=== PATIENT | female | born 1980 | race American Indian/Alaskan Native ===

== ENCOUNTER 2017-09-02 13:16 | Emergency (ER) | payer BC ==
[2017-09-02] MEDS ORDERED: REGLAN IV ONE (14:29)
[2017-09-02] MEDS ORDERED: BENADRYL IV ONE (14:29)
[2017-09-02] MEDS ORDERED: NACL 0.9% 1000 ML 1,000 ML IV ONE (14:29)
[2017-09-02] MEDS ORDERED: TORADOL IV ONE (14:29)
[2017-09-02 14:32] LABS: Basophils % (Auto) 0.7 % (0.0-1.8); Eosinophils % (Auto) 0.4 % (0.0-4.3); Hematocrit 41.9 % (30.3-42.9); Lymphocytes # (Auto) 2.1 K/mm3 (1.2-5.4); Lymphocytes % (Auto) 31.4 % (13.4-35.0); Mean Corpuscular HGB Conc 33 % (30-34); Mean Corpuscular Hemoglobin 30 pg (28-32); Mean Corpuscular Volume 89 fl (79-97); Monocytes # (Auto) 0.5 K/mm3 (0.0-0.8); Platelet Count 246 K/mm3 (140-440); Red Cell Distribution Width 13.9 % (13.2-15.2)
--- NOTE | 2017-09-02 14:33 | Emergency Department Report ---
ED Headache HPI - General Chief Complaint: Neuro Symptoms/Deficit Stated Complaint: SYNCOPY/POSS SEIZURE Time Seen by Provider: 09/02/17 13:40 Source: patient Exam Limitations: no limitations - History of Present Illness Initial Comments: 36-year-old female with a past medical history of migraines, GERD, and childhood asthma presents to the hospital with headache and near syncopal episode. Patient states she was sitting at work, she grabbed her head that she felt confused and had a global headache, she then fell off the chair onto the ground. No LOC reported the patient states she was trying to speak at this time was on 8. Now she has a moderate to severe posterior headache and photosensitivity. Positive dizziness and nausea (without vomiting). Also denies neck pain, fever, focal weakness, focal numbness, chest pain, shortness of breath, abdominal pain, or diarrhea. Headache is described as a constant pressure. Last migraine episode was several years ago and this headache is different than previous headaches. She also reports that she did not have anything to eat today. Patient did superficially bite the right side of her tongue and had urinary incontinence. Recent patient woke up from his sleep with tongue injury and urinary incontinence. Allergies/Adverse Reactions: Allergies No Known Allergies Allergy (Unverified 02/08/16 08:57) Home Medications: Ambulatory Orders Omeprazole 1 tab PO QDAY PRN 02/14/16 oxyCODONE /ACETAMINOPHEN [Percocet 5/325] 1 tab PO Q6HR PRN #30 tablet 02/14/16 Butalb/Acetamin/Caff 50-325-40 [Fioricet] 1 tab PO Q6HR PRN #20 tab 09/02/17 levETIRAcetam [Keppra TAB] 500 mg PO BID #60 tablet 09/02/17 ED Review of Systems ROS: Stated complaint: SYNCOPY/POSS SEIZURE Other details as noted in HPI Comment: All other systems reviewed and negative ED Past Medical Hx - Past Medical History Hx GERD: Yes Hx Headaches / Migraines: Yes (MIGRAINES) Hx Asthma: Yes (as child) Hx HIV: No - Surgical History Hx Cholecystectomy: Yes - Social History Smoking Status: Never Smoker - Medications Home Medications: Home Medications Medication Instructions Recorded Confirmed Last Taken Type Omeprazole 1 tab PO QDAY PRN 02/14/16 02/14/16 01/02/16 History oxyCODONE /ACETAMINOPHEN [Percocet 1 tab PO Q6HR PRN #30 tablet 02/14/16 Unknown Rx 5/325] Butalb/Acetamin/Caff 50-325-40 1 tab PO Q6HR PRN #20 tab 09/02/17 Unknown Rx [Fioricet] levETIRAcetam [Keppra TAB] 500 mg PO BID #60 tablet 09/02/17 Unknown Rx ED Physical Exam - General Limitations: No Limitations - Other Other exam information: General: No limitations, patient is alert in no acute distress Head exam: Atraumatic, normocephalic Eyes exam: Normal appearance, pupils equal reactive to light, extraocular movements intact ENT: Moist mucous membrane, normal oropharynx Neck exam: Normal inspection, full range of motion, no meningismus nontender Respiratory exam: Clear to auscultation bilateral, no wheezes, rales, crackles Cardiovascular: Normal rate and rhythm, normal heart sounds Abdomen: Soft, nondistended, and nontender, with normal bowel sounds, no rebound, or guarding Extremity: Full range of motion normal inspection no deformity Back: Normal Inspection, full range of motion, no tenderness Neurologic: Alert, oriented x3, cranial nerves intact, no motor or sensory deficit, [id number]-[id number] fossa intact Psychiatric: normal affect, normal mood Skin: Warm, dry, intact ED Course Vital Signs 09/02/17 09/02/17 09/02/17 13:21 13:22 13:30 Temperature 98.8 F Pulse Rate 86 96 H 93 H Respiratory 20 11 L 13 Rate Blood Pressure Blood Pressure 146/92 [Left] O2 Sat by Pulse 100 100 Oximetry 09/02/17 09/02/17 09/02/17 13:45 14:00 14:12 Temperature Pulse Rate 89 87 Respiratory 26 H 20 20 Rate Blood Pressure 134/83 134/83 Blood Pressure [Left] O2 Sat by Pulse 99 100 Oximetry 09/02/17 09/02/17 09/02/17 14:15 14:30 14:45 Temperature Pulse Rate 86 78 75 Respiratory 29 H 26 H 28 H Rate Blood Pressure 142/94 142/94 146/103 Blood Pressure [Left] O2 Sat by Pulse 100 100 100 Oximetry - Reevaluation(s) Reevaluation #1: 09/02/17 18:15 pt feeling better no further seizure activity ED Medical Decision Making - Lab Data Result diagrams: 09/02/17 14:04 09/02/17 14:04 Lab Results 09/02/17 09/02/17 09/02/17 Range/Units 14:04 14:04 14:04 WBC 6.6 (4.5-11.0) K/mm3 RBC 4.70 (3.65-5.03) M/mm3 Hgb 14.0 (10.1-14.3) gm/dl Hct 41.9 (30.3-42.9) % MCV 89 (79-97) fl MCH 30 (28-32) pg MCHC 33 (30-34) % RDW 13.9 (13.2-15.2) % Plt Count 246 (140-440) K/mm3 Lymph % (Auto) 31.4 (13.4-35.0) % [place] % (Auto) 7.0 (0.0-7.3) % Eos % (Auto) 0.4 (0.0-4.3) % Baso % (Auto) 0.7 (0.0-1.8) % Lymph # 2.1 (1.2-5.4) K/mm3 [place] # 0.5 (0.0-0.8) K/mm3 Eos # 0.0 (0.0-0.4) K/mm3 Baso # 0.0 (0.0-0.1) K/mm3 Seg Neutrophils % 60.5 (40.0-70.0) % Seg Neutrophils # 4.0 (1.8-7.7) K/mm3 Sodium 139 (137-145) mmol/L Potassium 4.0 (3.6-5.0) mmol/L Chloride 101.7 (98-107) mmol/L Carbon Dioxide 25 (22-30) mmol/L Anion Gap 16 mmol/L BUN 7 (7-17) mg/dL Creatinine 0.7 (0.7-1.2) mg/dL Estimated GFR > 60 ml/min BUN/Creatinine Ratio 10 % Glucose 83 (65-100) mg/dL Calcium 9.0 (8.4-10.2) mg/dL Magnesium (1.7-2.3) mg/dL Total Creatine Kinase 121 (30-135) units/L CK-MB (CK-2) 1.8 (0.0-4.0) ng/mL CK-MB (CK-2) Rel Index 1.4 (0-4) Troponin T < 0.010 (0.00-0.029) ng/mL HCG, Qual Negative (Negative) 09/02/17 Range/Units 14:11 WBC (4.5-11.0) K/mm3 RBC (3.65-5.03) M/mm3 Hgb (10.1-14.3) gm/dl Hct (30.3-42.9) % MCV (79-97) fl MCH (28-32) pg MCHC (30-34) % RDW (13.2-15.2) % Plt Count (140-440) K/mm3 Lymph % (Auto) (13.4-35.0) % [place] % (Auto) (0.0-7.3) % Eos % (Auto) (0.0-4.3) % Baso % (Auto) (0.0-1.8) % Lymph # (1.2-5.4) K/mm3 [place] # (0.0-0.8) K/mm3 Eos # (0.0-0.4) K/mm3 Baso # (0.0-0.1) K/mm3 Seg Neutrophils % (40.0-70.0) % Seg Neutrophils # (1.8-7.7) K/mm3 Sodium (137-145) mmol/L Potassium (3.6-5.0) mmol/L Chloride (98-107) mmol/L Carbon Dioxide (22-30) mmol/L Anion Gap mmol/L BUN (7-17) mg/dL Creatinine (0.7-1.2) mg/dL Estimated GFR ml/min BUN/Creatinine Ratio % Glucose (65-100) mg/dL Calcium (8.4-10.2) mg/dL Magnesium 2.00 (1.7-2.3) mg/dL Total Creatine Kinase (30-135) units/L CK-MB (CK-2) (0.0-4.0) ng/mL CK-MB (CK-2) Rel Index (0-4) Troponin T (0.00-0.029) ng/mL HCG, Qual (Negative) - EKG Data -: EKG Interpreted by Me EKG shows normal: sinus rhythm, axis (qrs 22), QRS complexes (qrsd 93), ST-T waves (no stemi) Rate: normal (97) - EKG Data When compared to previous EKG there are: previous EKG unavailable - Radiology Data Radiology results: report reviewed EXAM: CT HEAD/BRAIN WO CON HISTORY: alejo, dizzy, near synope COMPARISON: None. TECHNIQUE: Multiple contiguous axial images were obtained from the skullbase to the vertex without administration of IV contrast. FINDINGS: Brain volume is normal for age. No hemorrhage, mass, mass effect, or midline shift. Ventricles are not enlarged. Normal basal cisterns. No pathologic extra-axial fluid collection. No evidence of acute infarct. No skull fracture. Paranasal sinuses and mastoid air cells are clear. Bilateral orbits are grossly intact. IMPRESSION: No acute intracranial abnormality. - Medical Decision Making Syncope versus seizure. Given the patient had tongue injury of urinary incontinence with similar symptoms in the recent past she received Keppra 1 g seizure prophylaxis and was advised not to drive until cleared by neurology. Will be continued as outpatient. CT had a left unremarkable. Headache: Patient's headache improved with migraine cocktail including Toradol, Benadryl, and Reglan. CT head unremarkable. No nuchal rigidity or neck pain on exam. Patient will be started on Keppra and Fioricet and f/u will be encouraged - Differential Diagnosis migraine, ICH, intracranial mass, seizure, encephalopathy, syncope Critical Care Time: No Critical care attestation.: If time is entered above; I have spent that time in minutes in the direct care of this critically ill patient, excluding procedure time. ED Disposition Clinical Impression: Headache, Seizure Disposition: DC- TO HOME OR SELFCARE Is pt being admited?: No Does the pt Need Aspirin: No Condition: Stable Instructions: Acute Headache (ED), New-Onset Seizure in Adults (ED) Additional Instructions: Take the medication as prescribed. Follow-up with the either neurologist provided or with a neurologist of your choice. Do not drive until cleared by your primary care doctor or neurologist. Return if symptoms worsen as indicated by your discharge instructions Prescriptions: Butalb/Acetamin/Caff 50-325-40 [Fioricet] 1 tab PO Q6HR PRN #20 tab PRN Reason: Headache levETIRAcetam [Keppra TAB] 500 mg PO BID #60 tablet Referrals: JENNIFER IRIZARRY MD [Staff Physician] - 3-5 Days BÁRBARA LEIVA MD [Staff Physician] - 3-5 Days Time of Disposition: 18:25
[2017-09-02 14:41] LABS: Creatine Kinase MB 1.8 ng/mL (0.0-4.0)
[2017-09-02 14:42] LABS: BUN/Creatinine Ratio 10; Blood Urea Nitrogen 7 mg/dL (7-17)
[2017-09-02 14:43] LABS: Hemolysis Index 74
--- NOTE | 2017-09-02 15:25 | Cat Scan Report ---
FINAL REPORT EXAM: CT HEAD/BRAIN WO CON HISTORY: alejo, dizzy, near synope COMPARISON: None. TECHNIQUE: Multiple contiguous axial images were obtained from the skullbase to the vertex without administration of IV contrast. FINDINGS: Brain volume is normal for age. No hemorrhage, mass, mass effect, or midline shift. Ventricles are not enlarged. Normal basal cisterns. No pathologic extra-axial fluid collection. No evidence of acute infarct. No skull fracture. Paranasal sinuses and mastoid air cells are clear. Bilateral orbits are grossly intact. IMPRESSION: No acute intracranial abnormality.
[2017-09-02] MEDS ORDERED: KEPPRA 1,000 MG/NS 0.75% 100ML 1,000 MG/100 ML BAG IV ONE (16:23)
[2017-09-02 16:49] VITALS: BP 146/103
== END 2017-09-02 18:50 | disposition home or self-care (01) ==
LOC: ED 13:16
DX: R56.9 Unspecified convulsions (principal); K21.9 Gastro-esophageal reflux disease without esophagitis; G43.909 Migraine, unspecified, not intractable, without status migrainosus; J45.909 Unspecified asthma, uncomplicated
CPT/HCPCS: 36415; 70450; 80048; 82550; 82553; 83735; 84484; 84703; 85025; 93005; 93010; 96365; 96366; 96375; 99285; J1200; J1885; J1953; J2765; J7030; 96361